=== PATIENT | female | born 1960 | race African-American/Black ===

== ENCOUNTER 2018-06-29 10:25 | Inpatient (IN) | payer MEDICAID ==
[2018-06-29] VITALS (33 sets, daily range): BP systolic 69–150; BP diastolic 20–92
[~2018-06-29] VITALS: Ht 160 cm; Wt 59.0 kg
[2018-06-29] MEDS ORDERED: SODIUM CHLORIDE 0.9% 1000ML BAG (SEPSIS BOLUS) IV ONE (11:30)
[2018-06-29 12:16] LABS: BASOPHILS % 0.5 % (0.0-2.0); EOSINOPHILS % 0.2 % (0.0-5.0); HEMATOCRIT. 40.2 % (36.0-48.0); HEMOGLOBIN. 13.1 g/dL (12.0-16.0); LYMPHOCYTES % 21.3 % (20.0-50.0); MEAN CORPUSCULAR VOLUME 92.3 fL (81.0-99.0); MEAN PLATELET VOLUME 8.6 fl (7.4-10.4); MONOCYTES % 4.8 % (2.0-8.0); NEUTROPHILS % 73.2 % (40.0-76.0); PLATELET 123 x1000/uL (130-400); RED BLOOD CELL COUNT 4.36 mill/uL (4.2-5.4); RED CELL DISTRIBUTION WIDTH 13.3 % (11.6-14.6)
[2018-06-29 12:24] LABS: CHLORIDE 114 mEq/L (98-107)
[2018-06-29] MEDS ORDERED: ASPIRIN 325MG EC TABLET PO ONE (12:45)
[2018-06-29] MEDS ORDERED: ONDANSETRON HCL 4MG/2ML INJ IV ONE (13:15)
[2018-06-29] MEDS ORDERED: SODIUM CHLORIDE 0.9% 1,000 ML IV ONE (13:15)
[2018-06-29] MEDS ORDERED: SODIUM CHLORIDE 0.9% IRRIG SOLUTION 1000ML IR ONE (13:15)
[2018-06-29] MEDS ORDERED: HEPARIN 5000 UNITS/ML VIAL IV ONE (14:00)
[2018-06-29] MEDS ORDERED: ONDANSETRON HCL 4MG/2ML INJ IV PRN ×2 (14:15→16:30)
[2018-06-29] MEDS ORDERED: NOREPINEPHRINE 4 MG in DEXT 5% WATER 246 ML IV PRN (14:15)
[2018-06-29] MEDS ORDERED: HEPARIN SODIUM 1,000 UNIT/1ML VIAL IV ONE (14:19)
[2018-06-29] MEDS ORDERED: IODIXANOL 320MG/ML 100 ML BOTTLE IV ONE ×2 (14:35→15:55)
[2018-06-29] MEDS ORDERED: LIDOCAINE HCL 1% 20ML VIAL (Pyxis) INJ ONE (14:35)
[2018-06-29] MEDS ORDERED: FENTANYL CITRATE/PF 50MCG/ML 2ML VIAL ONE (15:02)
[2018-06-29] MEDS ORDERED: MIDAZOLAM HCL 2 MG/2 ML VIAL ONE (15:02)
[2018-06-29] MEDS ORDERED: NITROGLYCERIN 50MCG/ML 10ML VIAL (CATH LAB) IV ONE (15:28)
[2018-06-29] MEDS ORDERED: NICARDIPINE 100MCG/ML 10ML VIAL (CATH LAB) IV ONE (15:28)
[2018-06-29] MEDS ORDERED: IOHEXOL-300 100 ML BOTTLE ONE (15:31)
[2018-06-29] MEDS ORDERED: ATROPINE SULFATE 0.1MG/ML 10ML DISP.SYRIN ONE (15:32)
[2018-06-29] MEDS ORDERED: DOPAMINE 400MG/250ML PREMIX 250 ML IV ONE (15:34)
[2018-06-29] MEDS ORDERED: CLOPIDOGREL 75MG TABLET ONE (16:22)
[2018-06-29] MEDS ORDERED: ASPIRIN 325MG TABLET ONE (16:22)
[2018-06-29] MEDS ORDERED: ATROPINE SULFATE 1MG/10ML SYR IV PRN (16:30)
[2018-06-29] MEDS ORDERED: ACETAMINOPHEN 325MG TABLET PO PRN (16:30)
[2018-06-29] MEDS ORDERED: DOPAMINE 400MG/250ML PREMIX 250 ML IV PRN (17:30)
[2018-06-29] MEDS ORDERED: DEXT 5%/0.45% NACL 1000ML 1,000 ML IV ONE (18:00)
[2018-06-29] MEDS: MORPHINE SULFATE 4 MG/ML CPJ (NOT FOR IM USE) IV PRN (23:46)
[2018-06-30] VITALS (96 sets, daily range): BP systolic 52–153; BP diastolic 42–127
[2018-06-30 01:48] LABS: CLARITY URINE CLEAR (CLEAR); COLOR URINE YELLOW (YELLOW); KETONES URINE NEGATIVE (NEGATIVE); LEUKOCYTE ESTERASE URINE TRACE (NEGATIVE); NITRITE URINE NEGATIVE (NEGATIVE); OCCULT BLOOD URINE TRACE (NEGATIVE); PH URINE 5.5 (4.5-8.0); PROTEIN URINE 1+ (NEGATIVE); SPECIFIC GRAVITY URINE 1.028 (1.005-1.030)
[2018-06-30 02:06] LABS: *AMPHETAMINES SCREEN URINE NEGATIVE (NEGATIVE)
[2018-06-30 02:07] LABS: *BARBITURATES SCREEN URINE NEGATIVE (NEGATIVE); *BENZODIAZEPINES SCREEN URINE PRESUMTIVE POSITIVE (NEGATIVE); *COCAINE SCREEN URINE PRESUMTIVE POSITIVE (NEGATIVE); METHADONE URINE SCREEN NEGATIVE (NEGATIVE); OPIATES URINE SCREEN NEGATIVE (NEGATIVE)
[2018-06-30 02:08] LABS: CANNABINOID URINE SCREEN PRESUMTIVE POSITIVE (NEGATIVE); PHENCYCLIDINE URINE SCREEN NEGATIVE (NEGATIVE)
[2018-06-30 05:32] LABS: BASOPHILS % 0.4 % (0.0-2.0); EOSINOPHILS % 0.1 % (0.0-5.0); HEMATOCRIT. 35.5 % (36.0-48.0); HEMOGLOBIN. 11.8 g/dL (12.0-16.0); LYMPHOCYTES % 26.1 % (20.0-50.0); MEAN CORPUSCULAR HEMOGLOBIN 30.3 pg (28.0-32.0); MEAN CORPUSCULAR VOLUME 91.3 fL (81.0-99.0); MEAN PLATELET VOLUME 9.2 fl (7.4-10.4); MONOCYTES % 5.9 % (2.0-8.0); NEUTROPHILS % 67.5 % (40.0-76.0); PLATELET 130 x1000/uL (130-400); RED BLOOD CELL COUNT 3.89 mill/uL (4.2-5.4); RED CELL DISTRIBUTION WIDTH 13.5 % (11.6-14.6)
[2018-06-30 05:43] LABS: CHLORIDE 108 mEq/L (98-107)
[2018-06-30] MEDS ORDERED: LIDOCAINE HCL 1% 20ML VIAL (Pyxis) INJ ONE (08:58)
[2018-06-30] MEDS: CLOPIDOGREL 75MG TABLET PO SCH (09:36)
[2018-06-30] MEDS: ASPIRIN 81MG TABLET PO SCH (09:36)
[2018-06-30] MEDS ORDERED: DOPAMINE 400MG/250ML PREMIX 250 ML IV PRN (13:27)
[2018-06-30] MEDS ORDERED: ATORVASTATIN CALCIUM 10MG TABLET PO SCH (21:00)
[2018-06-30] MEDS: ATORVASTATIN CALCIUM 40MG TABLET PO SCH (21:22)
[2018-07-01] VITALS (68 sets, daily range): BP systolic 87–160; BP diastolic 46–110
[2018-07-01 05:44] LABS: CHLORIDE 107 mEq/L (98-107)
[2018-07-01 05:45] LABS: BASOPHILS % 0.4 % (0.0-2.0); EOSINOPHILS % 0.2 % (0.0-5.0); HEMATOCRIT. 32.2 % (36.0-48.0); HEMOGLOBIN. 10.9 g/dL (12.0-16.0); LYMPHOCYTES % 25.6 % (20.0-50.0); MEAN CORPUSCULAR HEMOGLOBIN 30.6 pg (28.0-32.0); MEAN CORPUSCULAR VOLUME 90.8 fL (81.0-99.0); MEAN PLATELET VOLUME 9.2 fl (7.4-10.4); MONOCYTES % 7.8 % (2.0-8.0); PLATELET 122 x1000/uL (130-400); RED BLOOD CELL COUNT 3.55 mill/uL (4.2-5.4); RED CELL DISTRIBUTION WIDTH 13.1 % (11.6-14.6)
[2018-07-01] MEDS: CLOPIDOGREL 75MG TABLET PO SCH (08:28)
[2018-07-01] MEDS: ASPIRIN 81MG TABLET PO SCH (08:28)
[2018-07-01] MEDS: MORPHINE SULFATE 4 MG/ML CPJ (NOT FOR IM USE) IV PRN ×2 (08:28→10:28)
[2018-07-01 15:12] LABS: HEPATITIS B SURFACE ANTIGEN NEGATIVE
[2018-07-01 15:41] LABS: HEPATITIS A AB IGM NEGATIVE (NEGATIVE)
[2018-07-01] MEDS: ATORVASTATIN CALCIUM 40MG TABLET PO SCH (21:43)
[2018-07-02] VITALS (15 sets, daily range): BP systolic 130–158; BP diastolic 82–109
[2018-07-02 06:00] LABS: CHLORIDE 106 mEq/L (98-107)
[2018-07-02 07:17] LABS: BASOPHILS % 0.4 % (0.0-2.0); EOSINOPHILS % 0.5 % (0.0-5.0); HEMOGLOBIN. 10.8 g/dL (12.0-16.0); LYMPHOCYTES % 29.4 % (20.0-50.0); MEAN CORPUSCULAR HEMOGLOBIN 30.7 pg (28.0-32.0); MEAN CORPUSCULAR VOLUME 91.3 fL (81.0-99.0); MEAN PLATELET VOLUME 9.5 fl (7.4-10.4); MONOCYTES % 8.5 % (2.0-8.0); NEUTROPHILS % 61.2 % (40.0-76.0); PLATELET 133 x1000/uL (130-400); RED CELL DISTRIBUTION WIDTH 13.2 % (11.6-14.6)
[2018-07-02] MEDS: ASPIRIN 81MG TABLET PO SCH (08:36)
[2018-07-02] MEDS: CLOPIDOGREL 75MG TABLET PO SCH (08:36)
[2018-07-04 08:14] LABS: HIV SCREEN 4G Non Reactive (Non Reactive)
== END 2018-07-02 14:15 | disposition home or self-care (01) | DRG 174 ==
LOC: ER 10:42 → 3WST 12:58 → EDBEDREQSVC 14:01 → EDBEDREQ 14:01 → CVICU 16:49
PROVIDERS: ADMIT Internal Medicine; ATTEND Internal Medicine
PROC: 4A023N7 Measurement of Cardiac Sampling and Pressure, Left Heart, Percutaneous Approach (ICD-10-PCS; principal; 2018-06-29)
PROC: 027036Z Dilation of Coronary Artery, One Artery with Three Drug-eluting Intraluminal Devices, Percutaneous Approach (ICD-10-PCS; 2018-06-29)
PROC: B2151ZZ Fluoroscopy of Left Heart using Low Osmolar Contrast (ICD-10-PCS; 2018-06-29)
PROC: B2111ZZ Fluoroscopy of Multiple Coronary Arteries using Low Osmolar Contrast (ICD-10-PCS; 2018-06-29)
PROC: 02HV33Z Insertion of Infusion Device into Superior Vena Cava, Percutaneous Approach (ICD-10-PCS; 2018-06-30)
PROC: B5181ZA Fluoroscopy of Superior Vena Cava using Low Osmolar Contrast, Guidance (ICD-10-PCS; 2018-06-30)
PROC: B548ZZA Ultrasonography of Superior Vena Cava, Guidance (ICD-10-PCS; 2018-06-30)
DX: I21.4 Non-ST elevation (NSTEMI) myocardial infarction (principal); R57.0 Cardiogenic shock; E43 Unspecified severe protein-calorie malnutrition; E87.0 Hyperosmolality and hypernatremia; E87.8 Other disorders of electrolyte and fluid balance, not elsewhere classified; E86.0 Dehydration; F12.10 Cannabis abuse, uncomplicated; F14.10 Cocaine abuse, uncomplicated; I10 Essential (primary) hypertension; E78.5 Hyperlipidemia, unspecified; I25.10 Atherosclerotic heart disease of native coronary artery without angina pectoris; I31.3 Pericardial effusion (noninflammatory); Z79.02 Long term (current) use of antithrombotics/antiplatelets; Z87.440 Personal history of urinary (tract) infections; Z68.23 Body mass index [BMI] 23.0-23.9, adult
CPT/HCPCS: 36415; 36569; 71045; 74176; 76937; 80048; 80061; 80305; 82962; 83036; 83605; 83735; 83880; 84443; 84484; 85347; 86705; 86709; 86803; 87340; 87389; 92941; 93005; 93306; 93458; 96374; 99285; C1725; C1769; C1874; C1887; J0461; J1265; J1644; J2250; J2270; J2405; J3010; J3490; J7030; Q9967

== ENCOUNTER 2022-04-01 12:28 | Inpatient (IN) | payer MEDICAID, OTHER ==
[~2022-04-01] VITALS: Ht 203.2 cm; Wt 51.0 kg
[2022-04-01] MEDS ORDERED: ASPIRIN 81MG TABLET PO ONE (18:30)
[2022-04-01] MEDS ORDERED: FUROSEMIDE 40MG/4ML VIAL IV ONE (18:30)
[2022-04-01] MEDS ORDERED: NITROGLYCERIN OINT 1GM/INCH UDPKT TD ONE (18:30)
[2022-04-01 19:31] LABS: BASOPHILS % 1.3 % (0.0-2.0); EOSINOPHILS % 0.1 % (0.0-5.0); HEMATOCRIT. 43.2 % (36.0-48.0); HEMOGLOBIN. 13.4 g/dL (12.0-16.0); LYMPHOCYTES % 30.3 % (20.0-50.0); MEAN CORPUSCULAR VOLUME 80.3 fL (81.0-99.0); MEAN PLATELET VOLUME 9.5 fl (7.4-10.4); MONOCYTES % 12.3 % (2.0-8.0); PLATELET 178 x1000/uL (130-400); RED BLOOD CELL COUNT 5.37 mill/uL (4.2-5.4); RED CELL DISTRIBUTION WIDTH 19.9 % (11.6-14.6)
[2022-04-01 19:36] LABS: CHLORIDE 101 mEq/L (98-107)
[2022-04-01 19:39] LABS: D-DIMER 2.09 mg/L FEU (<0.50); INR 1.5; PARTIAL THROMBOPLASTIN TIME 32.2 sec (23.4-31.0); PROTHROMBIN TIME 15.5 sec (9.6-11.0)
[2022-04-01 20:29] LABS: CLARITY URINE CLEAR (CLEAR); COLOR URINE DARK YELLOW (YELLOW); KETONES URINE TRACE (NEGATIVE); LEUKOCYTE ESTERASE URINE NEGATIVE (NEGATIVE); NITRITE URINE NEGATIVE (NEGATIVE); OCCULT BLOOD URINE 1+ (NEGATIVE); PH URINE 5.5 (4.5-8.0); PROTEIN URINE 3+ (NEGATIVE); SPECIFIC GRAVITY URINE 1.011 (1.005-1.030); UROBILINOGEN URINE 0.2 E.U./dL (0.2-1.0)
[2022-04-01] MEDS ORDERED: CEFTRIAXONE 1 G PREMIX 50 ML IV ONE (22:15)
[2022-04-01] MEDS ORDERED: IOHEXOL-350 100 ML BOTTLE ONE (22:28)
[2022-04-02] MEDS ORDERED: ONDANSETRON HCL 4MG/2ML INJ IV PRN (12:15)
[2022-04-02] MEDS ORDERED: ACETAMINOPHEN 325MG TABLET PO PRN (12:15)
[2022-04-02 13:00] VITALS: BP 112/80
[2022-04-02] MEDS: FUROSEMIDE 40MG/4ML VIAL IVP SCH ×2 (13:27→17:11)
[2022-04-02 13:30] VITALS: BP 112/80
[2022-04-02 14:35] LABS: *AMPHETAMINES SCREEN URINE NEGATIVE (NEGATIVE); *BARBITURATES SCREEN URINE NEGATIVE (NEGATIVE); *BENZODIAZEPINES SCREEN URINE NEGATIVE (NEGATIVE); *COCAINE SCREEN URINE NEGATIVE (NEGATIVE); CANNABINOID URINE SCREEN PRESUMTIVE POSITIVE (NEGATIVE); METHADONE URINE SCREEN NEGATIVE (NEGATIVE); OPIATES URINE SCREEN NEGATIVE (NEGATIVE); PHENCYCLIDINE URINE SCREEN NEGATIVE (NEGATIVE)
[2022-04-02 16:00] VITALS: BP 110/78
[2022-04-02 20:00] VITALS: BP 102/69
[2022-04-02] MEDS ORDERED: DOCU-150 PO (20:53)
[2022-04-02] MEDS ORDERED: PANT40TA51 PO (20:53)
[2022-04-02] MEDS ORDERED: CARV3.1242 PO (20:53)
[2022-04-02] MEDS ORDERED: APIX5TAB4 PO (20:53)
[2022-04-02] MEDS ORDERED: SPIR25TA6 PO (20:53)
[2022-04-02] MEDS ORDERED: SACU1TAB PO (20:53)
[2022-04-02] MEDS ORDERED: METR-167 PO (20:53)
[2022-04-02] MEDS ORDERED: LIP40 PO (20:53)
[2022-04-02] MEDS ORDERED: FURO-151 PO (20:53)
[2022-04-02] MEDS ORDERED: ASPI-1406 PO (20:53)
[2022-04-03] VITALS: BP 110/78
[2022-04-03 06:56] LABS: BASOPHILS % 0.6 % (0.0-2.0); EOSINOPHILS % 0.2 % (0.0-5.0); HEMATOCRIT. 36.8 % (36.0-48.0); HEMOGLOBIN. 11.7 g/dL (12.0-16.0); MEAN CORPUSCULAR HEMOGLOBIN 25.3 pg (28.0-32.0); MEAN CORPUSCULAR VOLUME 79.4 fL (81.0-99.0); MEAN PLATELET VOLUME 9.2 fl (7.4-10.4); MONOCYTES % 13.9 % (2.0-8.0); NEUTROPHILS % 44.3 % (40.0-76.0); PLATELET 134 x1000/uL (130-400); RED BLOOD CELL COUNT 4.63 mill/uL (4.2-5.4); RED CELL DISTRIBUTION WIDTH 19.6 % (11.6-14.6)
[2022-04-03 08:00] VITALS: BP 113/81
[2022-04-03] MEDS: CARVEDILOL 3.125 MG TABLET PO SCH ×2 (09:19→20:52)
[2022-04-03] MEDS: ASPIRIN 81MG TABLET PO SCH (09:19)
[2022-04-03] MEDS: FUROSEMIDE 40MG/4ML VIAL IVP SCH ×2 (09:19→17:39)
[2022-04-03 12:00] VITALS: BP 97/62
[2022-04-03 16:00] VITALS: BP 108/84
[2022-04-03 20:00] VITALS: BP 100/74
[2022-04-03] MEDS: ATORVASTATIN CALCIUM 40MG TABLET PO SCH (22:15)
[2022-04-04] VITALS: BP 115/76
[2022-04-04 04:00] VITALS: BP 119/87
[2022-04-04 08:00] VITALS: BP 119/86
[2022-04-04] MEDS: CARVEDILOL 3.125 MG TABLET PO SCH ×2 (09:16→20:40)
[2022-04-04] MEDS: ASPIRIN 81MG TABLET PO SCH (09:17)
[2022-04-04] MEDS: FUROSEMIDE 40MG/4ML VIAL IVP SCH ×2 (09:36→17:12)
[2022-04-04 12:00] VITALS: BP 101/72
[2022-04-04 16:00] VITALS: BP 109/84
[2022-04-04 20:00] VITALS: BP 101/78
[2022-04-04] MEDS: ATORVASTATIN CALCIUM 40MG TABLET PO SCH (21:57)
[2022-04-05] VITALS: BP 111/80
[2022-04-05 04:00] VITALS: BP 112/80
[2022-04-05 08:00] VITALS: BP 109/72
[2022-04-05] MEDS ORDERED: CARVEDILOL 6.25 MG TABLET PO SCH (09:00)
[2022-04-05] MEDS: ASPIRIN 81MG TABLET PO SCH (09:13)
[2022-04-05] MEDS: FUROSEMIDE 40MG/4ML VIAL IVP SCH (09:13)
[2022-04-05 11:19] LABS: BASOPHILS % 0.8 % (0.0-2.0); EOSINOPHILS % 0.5 % (0.0-5.0); HEMATOCRIT. 40.1 % (36.0-48.0); HEMOGLOBIN. 12.7 g/dL (12.0-16.0); LYMPHOCYTES % 27.3 % (20.0-50.0); MEAN CORPUSCULAR HEMOGLOBIN 25.2 pg (28.0-32.0); MEAN CORPUSCULAR VOLUME 79.6 fL (81.0-99.0); MEAN PLATELET VOLUME 9.2 fl (7.4-10.4); MONOCYTES % 10.4 % (2.0-8.0); PLATELET 123 x1000/uL (130-400); RED BLOOD CELL COUNT 5.04 mill/uL (4.2-5.4); RED CELL DISTRIBUTION WIDTH 19.8 % (11.6-14.6)
[2022-04-05 11:29] LABS: CHLORIDE 101 mEq/L (98-107)
[2022-04-05 12:00] VITALS: BP 91/60
[2022-04-05] MEDS ORDERED: SACU1TAB PO (12:47)
[2022-04-05] MEDS ORDERED: COR6 PO (12:47)
[2022-04-05] MEDS ORDERED: FURO-151 PO (12:47)
[2022-04-05] MEDS ORDERED: PREDNISONE 20MG TABLET PO SCH (13:00)
[2022-04-05] MEDS ORDERED: FLUT1DIS3 INH (13:33)
[2022-04-05] MEDS ORDERED: SPIR25TA6 MT (13:33)
[2022-04-05] MEDS ORDERED: IPRA3AMP9 NEB (13:33)
[2022-04-05] MEDS ORDERED: ALBU18HF2 IH (13:33)
[2022-04-05] MEDS ORDERED: POTA-205 MT (13:33)
[2022-04-05 15:09] VITALS: BP 91/60
== END 2022-04-05 16:50 | disposition home or self-care (01) | DRG 194 ==
LOC: ER 12:28 → EDBEDREQ 22:20 → EDBEDREQTM 22:20 → 7WST 22:48 → EDBEDREQ 22:49 → ENRESERV 04-02 11:06
PROVIDERS: ADMIT Internal Medicine; ATTEND Internal Medicine
DX: I11.0 Hypertensive heart disease with heart failure (principal); I25.3 Aneurysm of heart; I42.9 Cardiomyopathy, unspecified; E87.1 Hypo-osmolality and hyponatremia; D72.819 Decreased white blood cell count, unspecified; F17.210 Nicotine dependence, cigarettes, uncomplicated; Z20.822 Contact with and (suspected) exposure to COVID-19; N39.0 Urinary tract infection, site not specified; I25.10 Atherosclerotic heart disease of native coronary artery without angina pectoris; J98.11 Atelectasis; I08.1 Rheumatic disorders of both mitral and tricuspid valves; Z82.49 Family history of ischemic heart disease and other diseases of the circulatory system; I25.2 Old myocardial infarction; Z98.61 Coronary angioplasty status; I50.23 Acute on chronic systolic (congestive) heart failure
CPT/HCPCS: 36415; 71045; 71275; 80048; 80053; 80305; 81003; 83735; 83880; 84484; 85025; 85379; 87426; 93005; 93306; 93970; 99285; C9803; J0696; J1940; Q9967

== ENCOUNTER 2022-09-19 13:18 | Emergency (ER) | payer MEDICAID, OTHER ==
[~2022-09-19] VITALS: Ht 167.6 cm; Wt 54.0 kg
[~2022-09-19 13:18] MED LIST: ALBU18HF2 IH; APIX5TAB4 PO; ASPI-1406 PO; COR6 PO; DOCU-150 PO; FLUT1DIS3 INH; FURO-151 PO; IPRA3AMP9 NEB; LIP40 PO; PANT40TA51 PO; POTA-205 MT; SACU1TAB PO; SPIR25TA6 MT; SPIR25TA6 PO
[2022-09-19 14:13] LABS: BASOPHILS % 0.7 % (0.0-2.0); EOSINOPHILS % 1.1 % (0.0-5.0); HEMATOCRIT. 36.8 % (36.0-48.0); HEMOGLOBIN. 12.1 g/dL (12.0-16.0); LYMPHOCYTES % 42.6 % (20.0-50.0); MEAN CORPUSCULAR HEMOGLOBIN 30.7 pg (28.0-32.0); MEAN CORPUSCULAR VOLUME 93.2 fL (81.0-99.0); MEAN PLATELET VOLUME 10.2 fl (7.4-10.4); MONOCYTES % 8.1 % (2.0-8.0); NEUTROPHILS % 47.5 % (40.0-76.0); PLATELET 156 x1000/uL (130-400); RED BLOOD CELL COUNT 3.94 mill/uL (4.2-5.4); RED CELL DISTRIBUTION WIDTH 13.2 % (11.6-14.6)
[2022-09-19 14:22] LABS: CHLORIDE 114 mEq/L (98-107)
[2022-09-19 21:00] VITALS: BP 111/81
[2022-09-19] MEDS ORDERED: ONDA4TAB50 MT (21:17)
== END 2022-09-19 21:32 | disposition home or self-care (01) ==
LOC: ER 13:48
DX: R07.89 Other chest pain (principal); I11.0 Hypertensive heart disease with heart failure; I50.9 Heart failure, unspecified; Z79.899 Other long term (current) drug therapy
CPT/HCPCS: 36415; 71045; 80053; 83880; 85025; 93005; 99285